=== PATIENT | female | born 1945 | race Caucasian/White ===

== ENCOUNTER 2017-04-17 09:20 | Outpatient (CLI) | payer MEDICARE ==
[~2017-04-17 09:20] MED LIST: CHOL100046 PO; DOCU-148 PO; FAMO20TA8 PO; HYDR12.5 PO; IBUP-24 PO; SPIIN INH
[2017-04-17 10:19] LABS: BASOPHILS # (AUTO) 0.1 X10'3 (0-0.2); BASOPHILS % (AUTO) 1.7 % (0-1); EOSINOPHILS # (AUTO) 0.3 X10'3 (0-0.9); HEMATOCRIT 42.4 % (35.0-45.0); HEMOGLOBIN 14.1 g/dl (12.0-16.0); LYMPHOCYTES # (AUTO) 1.6 X10'3 (1.1-4.8); LYMPHOCYTES % (AUTO) 22.8 % (21-51); MEAN CORPUSCULAR HEMOGLOBIN 29.4 PG (27.0-31.0); MEAN CORPUSCULAR HGB CONC 33.1 % (33.0-36.5); MEAN CORPUSCULAR VOLUME 88.7 FL (78-98); MEAN PLATELET VOLUME 8.2 FL (7.4-10.4); MONOCYTES # (AUTO) 0.3 X10'3 (0-0.9); MONOCYTES % (AUTO) 4.7 % (2-12); NEUTROPHILS # (AUTO) 4.6 X10'3 (1.8-7.7); NEUTROPHILS % (AUTO) 66.8 % (42-75); PLATELET COUNT 250 X10'3 (140-440); RED BLOOD COUNT 4.78 X10'6 (4.20-5.60); RED CELL DISTRIBUTION WIDTH 14.4 % (11.5-14.5)
[2017-04-17 10:22] LABS: CLARITY,URINE Clear (Clear); COLOR,URINE Yellow (Yellow); GLUCOSE, URINE Negative (Neg); KETONES,URINE Negative (Neg); LEUKOCYTE ESTERASE ,URINE Negative (Neg); NITRITES, URINE Negative (Neg); OCCULT BLOOD,URINE Negative (Neg); PROTEIN,URINE Negative (Neg)
[2017-04-17 10:28] LABS: PROTHROMBIN TIME 10.6 SECONDS (9.0-12.0)
[2017-04-17 10:30] LABS: UA COLLECTION TYPE CLN CATCH MIDSTREAM
[2017-04-17 10:34] LABS: ALANINE AMINOTRANSFERASE 21 U/L (12-78); ALBUMIN 3.4 G/DL (3.4-5.0); ALBUMIN/GLOBULIN RATIO 0.9 (1.1-1.5); ALKALINE PHOSPHATASE 128 IU/L (46-116); ANION GAP 7 (8-16); ASPARTATE AMINO TRANSFERASE 20 U/L (10-37); BILIRUBIN,TOTAL 0.4 MG/DL (0.1-1.0); BLOOD UREA NITROGEN 19 MG/DL (7-18); BUN/CREATININE RATIO 16.8 (6.6-38.0); CALCIUM 9.1 MG/DL (8.5-10.1); CHLORIDE 108 MMOL/L (99-107); CREATININE 1.13 MG/DL (0.40-0.90); GLUCOSE 108 MG/DL (70-104); POTASSIUM 3.7 MMOL/L (3.5-5.1); SODIUM 143 MMOL/L (135-145); TOTAL PROTEIN 7.4 G/DL (6.4-8.2); eGFR 48 ML/MIN
[2017-04-26] MEDS ORDERED: TRAM50TA2 PO (09:00)
== END 2017-04-17 23:59 | disposition home or self-care (01) ==
LOC: LAB 09:20
PROVIDERS: ATTEND Specialist
DX: Z01.818 Encounter for other preprocedural examination (principal); Z51.81 Encounter for therapeutic drug level monitoring; N39.0 Urinary tract infection, site not specified; I10 Essential (primary) hypertension; J44.9 Chronic obstructive pulmonary disease, unspecified; F17.200 Nicotine dependence, unspecified, uncomplicated; Z85.3 Personal history of malignant neoplasm of breast
CPT/HCPCS: 36415; 80053; 81003; 85025; 85610; 87070

== ENCOUNTER 2017-04-30 05:20 | Inpatient (IN) | payer MEDICARE ==
[2017-04-30] VITALS (18 sets, daily range): BP systolic 89–140; BP diastolic 48–81
[~2017-04-30] VITALS: Ht 154.9 cm; Wt 71.0 kg
[~2017-04-30 05:20] MED LIST changes: +TRAM50TA2 PO; +insulin regular, human 10 units/0.1 ml syringe ONE; +ringers solution, lacted 1,000 ML IV SCH
[2017-04-30] MEDS ORDERED: oxyCODONE SR 10mg (sust. release) tab PO ONE (05:30)
[2017-04-30] MEDS ORDERED: ceFAZolin 2gm in dextrose, iso 100 ML IV ONE (05:30)
[2017-04-30] MEDS ORDERED: gabapentin 300mg capsule PO ONE (05:30)
[2017-04-30] MEDS ORDERED: tranexamic acid inj. 1,000 MG in normal saline 100ml IV soln 90 ML IV ONE (05:30)
[2017-04-30] MEDS ORDERED: albuterol 2.5 MG/3 ML nebule NEB ONE (05:30)
[2017-04-30] MEDS ORDERED: acetaminophen 325mg tablet PO ONE (05:30)
[2017-04-30] MEDS ORDERED: famotidine 20mg tablet PO ONE (05:30)
[2017-04-30] MEDS ORDERED: LIDOcaine 1% (10mg/ml) 2ml vial ONE ×2 (06:00→06:27)
[2017-04-30] MEDS ORDERED: ROPIVAcaine 0.5% (5mg/ml) 30ml vial ONE (06:50)
[2017-04-30] MEDS ORDERED: bacitracin inj 150,000 UNIT in sodium chloride irrig. sol 3,000 ML IR ONE (07:00)
[2017-04-30] MEDS ORDERED: MORPHINE SULFATE/PF 0.5 MG/ML 10ML AMPUL ONE (07:19)
[2017-04-30] MEDS ORDERED: MIDAZolam 1mg/ml 10ml vial ONE (07:19)
[2017-04-30] MEDS ORDERED: dexamethasone sod phosphate 4mg/ml inj. ONE (07:51)
[2017-04-30] MEDS ORDERED: BUPIVAcaine/PF 2.5 mg/ml (0.25%) 30ml vial ONE (07:51)
[2017-04-30] MEDS ORDERED: propofol inj 20 ML IV ONE ×2 (07:51)
[2017-04-30] MEDS ORDERED: 0.9 % SODIUM CHLORIDE 10 ML VIAL ONE (07:52)
[2017-04-30] MEDS ORDERED: ePHEDrine 50MG/ML INJ. ONE (08:01)
[2017-04-30] MEDS ORDERED: proCHLORperazine 10 MG/2 ml inj IV PRN (08:20)
[2017-04-30] MEDS ORDERED: acetaminophen 1,000mg/100ml IV 100 ML IV PRN (08:20)
[2017-04-30] MEDS ORDERED: meperidine/PF 25mg/ml syringe IV PRN ×2 (08:20)
[2017-04-30] MEDS ORDERED: ondansetron/PF 4mg/2ml inj IV PRN ×3 (08:20→09:25)
[2017-04-30] MEDS ORDERED: diphenhydrAMINE 50 mg/ml inj IV PRN (08:20)
[2017-04-30] MEDS ORDERED: meperidine/PF 25mg/ml syringe IV ONE (08:20)
[2017-04-30] MEDS ORDERED: naloxone 2mg/2ml inj 1.3 MG in normal saline 500ml IV soln 500 ML IV PRN (08:20)
[2017-04-30] MEDS ORDERED: ringers solution, lacted 1,000 ML IV SCH (08:20)
[2017-04-30] MEDS ORDERED: ceFAZolin 1000mg inj ONE (08:42)
[2017-04-30] MEDS ORDERED: phenylephrine 10mg/ml inj IV ONE (08:57)
[2017-04-30] MEDS ORDERED: cloNIDine hcl/PF 100mcg/ml inj ONE (09:15)
[2017-04-30] MEDS ORDERED: diphenhydrAMINE 25mg capsule PO PRN ×2 (09:25)
[2017-04-30] MEDS ORDERED: acetaminophen 325mg tablet PO PRN ×2 (09:25→20:31)
[2017-04-30] MEDS ORDERED: bisacodyl 10mg suppository rectal RC PRN (09:25)
[2017-04-30] MEDS ORDERED: HYDROmorphone inj. 0.5 MG/0.5 ML DISP.SYRIN IV PRN (09:25)
[2017-04-30] MEDS ORDERED: magnesium hydroxide 30ml (MOM) UD suspension PO PRN (09:25)
[2017-04-30] MEDS: potassium cl 20mEq in 1/2 NS 1,000 ML IV SCH ×3 (13:12→20:53)
[2017-04-30] MEDS: gabapentin 300mg capsule PO SCH ×2 (13:14→20:45)
[2017-04-30] MEDS: acetaminophen 325mg tablet PO SCH (13:47)
[2017-04-30] MEDS: cefazolin 1gm/NS 100mL 100 ML IV SCH ×2 (15:55→23:59)
[2017-04-30] MEDS: ascorbic acid 500mg tablet PO SCH (20:00)
[2017-04-30] MEDS: celeCOXIB 100mg capsule PO SCH (20:45)
[2017-04-30] MEDS: sennosides 8.6mg tablet PO SCH (21:00)
[2017-05-01 02:35] VITALS: BP 92/53
[2017-05-01] MEDS: acetaminophen 325mg tablet PO SCH ×4 (03:16→19:17)
[2017-05-01] MEDS: oxyCODONE IR 5mg (immed. release) tablet PO PRN ×3 (05:41→19:16)
[2017-05-01] MEDS: potassium cl 20mEq in 1/2 NS 1,000 ML IV SCH ×2 (05:52→15:07)
[2017-05-01 06:00] VITALS: BP 97/42
[2017-05-01 06:24] LABS: BASOPHILS % (AUTO) 0.2 % (0-1); EOSINOPHILS # (AUTO) 0.1 X10'3 (0-0.9); HEMOGLOBIN 11.2 g/dl (12.0-16.0); LYMPHOCYTES % (AUTO) 9.8 % (21-51); MEAN CORPUSCULAR HEMOGLOBIN 29.6 PG (27.0-31.0); MEAN CORPUSCULAR VOLUME 89.7 FL (78-98); MEAN PLATELET VOLUME 8.4 FL (7.4-10.4); MONOCYTES # (AUTO) 0.4 X10'3 (0-0.9); MONOCYTES % (AUTO) 3.9 % (2-12); NEUTROPHILS # (AUTO) 8.5 X10'3 (1.8-7.7); NEUTROPHILS % (AUTO) 85.1 % (42-75); PLATELET COUNT 214 X10'3 (140-440); RED BLOOD COUNT 3.79 X10'6 (4.20-5.60); RED CELL DISTRIBUTION WIDTH 13.6 % (11.5-14.5); WHITE BLOOD COUNT 9.9 X10'3 (4.5-11.0)
[2017-05-01 06:39] LABS: INR 1.8 INR; PROTHROMBIN TIME 18.3 SECONDS (9.0-12.0)
[2017-05-01 07:05] LABS: ANION GAP 8 (8-16); CHLORIDE 106 MMOL/L (99-107); POTASSIUM 4.6 MMOL/L (3.5-5.1); SODIUM 137 MMOL/L (135-145); TOTAL CARBON DIOXIDE 23.1 MMOL/L (24-32)
[2017-05-01] MEDS: HYDROchlorothiazide 12.5mg capsule PO SCH (07:05)
[2017-05-01] MEDS: multivitamins, therapeutics tablet PO SCH (07:16)
[2017-05-01] MEDS: ascorbic acid 500mg tablet PO SCH ×2 (07:16→19:17)
[2017-05-01] MEDS: celeCOXIB 100mg capsule PO SCH ×2 (07:17→19:16)
[2017-05-01] MEDS: gabapentin 300mg capsule PO SCH ×3 (07:18→21:05)
[2017-05-01] MEDS: ipratropium 0.5 MG/2.5ML nebule NEB SCH (08:09)
[2017-05-01 10:00] VITALS: BP 119/81
[2017-05-01] MEDS ORDERED: warfarin 1mg tablet PO ONE (10:00)
[2017-05-01] MEDS ORDERED: Protein Shake (high protein) 240ml (8oz) cup PO SCH (13:00)
[2017-05-01] MEDS: Protein Shake (high protein) 240ml (8oz) cup PO SCH ×2 (13:13→18:00)
[2017-05-01 14:00] VITALS: BP 114/57
[2017-05-01 18:00] VITALS: BP 93/56
[2017-05-01] MEDS: sennosides 8.6mg tablet PO SCH (21:06)
[2017-05-01 22:29] VITALS: BP 93/58
[2017-05-02] MEDS: acetaminophen 325mg tablet PO SCH ×2 (02:00→07:58)
[2017-05-02] MEDS: oxyCODONE IR 5mg (immed. release) tablet PO PRN ×4 (05:33→22:03)
[2017-05-02 07:29] VITALS: BP 96/52
[2017-05-02] MEDS: HYDROchlorothiazide 12.5mg capsule PO SCH (07:44)
[2017-05-02 07:50] LABS: BASOPHILS % (AUTO) 0.4 % (0-1); EOSINOPHILS # (AUTO) 0.2 X10'3 (0-0.9); EOSINOPHILS % (AUTO) 2.4 % (0-6); HEMOGLOBIN 10.9 g/dl (12.0-16.0); LYMPHOCYTES # (AUTO) 1.9 X10'3 (1.1-4.8); LYMPHOCYTES % (AUTO) 21.8 % (21-51); MEAN CORPUSCULAR HEMOGLOBIN 29.7 PG (27.0-31.0); MEAN CORPUSCULAR HGB CONC 33.1 % (33.0-36.5); MEAN CORPUSCULAR VOLUME 89.7 FL (78-98); MEAN PLATELET VOLUME 8.2 FL (7.4-10.4); MONOCYTES # (AUTO) 0.4 X10'3 (0-0.9); MONOCYTES % (AUTO) 4.9 % (2-12); NEUTROPHILS # (AUTO) 6.1 X10'3 (1.8-7.7); NEUTROPHILS % (AUTO) 70.5 % (42-75); PLATELET COUNT 211 X10'3 (140-440); RED BLOOD COUNT 3.68 X10'6 (4.20-5.60); RED CELL DISTRIBUTION WIDTH 14.6 % (11.5-14.5); WHITE BLOOD COUNT 8.6 X10'3 (4.5-11.0)
[2017-05-02] MEDS: multivitamins, therapeutics tablet PO SCH (07:57)
[2017-05-02] MEDS: gabapentin 300mg capsule PO SCH ×3 (07:57→22:03)
[2017-05-02] MEDS: celeCOXIB 100mg capsule PO SCH ×2 (07:57→22:03)
[2017-05-02] MEDS: ascorbic acid 500mg tablet PO SCH ×2 (07:58→22:03)
[2017-05-02 08:02] LABS: INR 1.8 INR; PROTHROMBIN TIME 17.9 SECONDS (9.0-12.0)
[2017-05-02] MEDS: ipratropium 0.5 MG/2.5ML nebule NEB SCH (08:42)
[2017-05-02] MEDS: Protein Shake (high protein) 240ml (8oz) cup PO SCH ×3 (08:45→18:00)
[2017-05-02] MEDS ORDERED: acetaminophen 325mg tablet PO PRN (09:25)
[2017-05-02 10:00] VITALS: BP 90/52
[2017-05-02] MEDS ORDERED: warfarin 1mg tablet PO ONE (10:00)
[2017-05-02 18:00] VITALS: BP 112/57
[2017-05-02 22:00] VITALS: BP 122/73
[2017-05-02] MEDS: sennosides 8.6mg tablet PO SCH (22:03)
[2017-05-03 05:00] VITALS: BP 116/68
[2017-05-03] MEDS: multivitamins, therapeutics tablet PO SCH (07:55)
[2017-05-03] MEDS: celeCOXIB 100mg capsule PO SCH (07:55)
[2017-05-03] MEDS: ascorbic acid 500mg tablet PO SCH (07:55)
[2017-05-03] MEDS: gabapentin 300mg capsule PO SCH (07:56)
[2017-05-03] MEDS: HYDROchlorothiazide 12.5mg capsule PO SCH (07:56)
[2017-05-03 08:20] LABS: BASOPHILS # (AUTO) 0.1 X10'3 (0-0.2); BASOPHILS % (AUTO) 1.2 % (0-1); EOSINOPHILS # (AUTO) 0.3 X10'3 (0-0.9); EOSINOPHILS % (AUTO) 4.4 % (0-6); HEMATOCRIT 33.1 % (35.0-45.0); LYMPHOCYTES # (AUTO) 1.8 X10'3 (1.1-4.8); LYMPHOCYTES % (AUTO) 23.4 % (21-51); MEAN CORPUSCULAR HEMOGLOBIN 29.6 PG (27.0-31.0); MEAN CORPUSCULAR HGB CONC 33.1 % (33.0-36.5); MEAN CORPUSCULAR VOLUME 89.4 FL (78-98); MEAN PLATELET VOLUME 8.3 FL (7.4-10.4); MONOCYTES # (AUTO) 0.5 X10'3 (0-0.9); MONOCYTES % (AUTO) 5.9 % (2-12); NEUTROPHILS % (AUTO) 65.1 % (42-75); PLATELET COUNT 225 X10'3 (140-440); RED BLOOD COUNT 3.71 X10'6 (4.20-5.60); RED CELL DISTRIBUTION WIDTH 14.3 % (11.5-14.5); WHITE BLOOD COUNT 7.7 X10'3 (4.5-11.0)
[2017-05-03 08:25] LABS: INR 1.4 INR; PROTHROMBIN TIME 13.9 SECONDS (9.0-12.0)
[2017-05-03] MEDS ORDERED: ASPI-1264 PO (08:41)
[2017-05-03] MEDS: Protein Shake (high protein) 240ml (8oz) cup PO SCH (08:44)
[2017-05-03] MEDS: ipratropium 0.5 MG/2.5ML nebule NEB SCH (09:08)
[2017-05-03] MEDS ORDERED: warfarin 5mg tablet PO ONE (10:00)
[2017-05-03 10:05] VITALS: BP 116/61
[2017-05-03] MEDS: oxyCODONE IR 5mg (immed. release) tablet PO PRN (10:27)
== END 2017-05-03 12:30 | disposition home health service (06) | DRG 470 ==
LOC: PAS IN 05:20 → EDSTATUS 07:30 → ORTHO 4S 10:35 → UNDODISIN 05-01 11:30 → ORTHO 4S 05-02 16:00
PROVIDERS: ADMIT Specialist; ATTEND Specialist
PROC: 3E0T3BZ Introduction of Anesthetic Agent into Peripheral Nerves and Plexi, Percutaneous Approach (ICD-10-PCS; 2017-04-30)
PROC: 0SR902Z Replacement of Right Hip Joint with Metal on Polyethylene Synthetic Substitute, Open Approach (ICD-10-PCS; principal; 2017-04-30 07:20)
DX: M16.11 Unilateral primary osteoarthritis, right hip (principal); J44.9 Chronic obstructive pulmonary disease, unspecified; D62 Acute posthemorrhagic anemia; I10 Essential (primary) hypertension; K21.9 Gastro-esophageal reflux disease without esophagitis; Z96.642 Presence of left artificial hip joint; Z90.10 Acquired absence of unspecified breast and nipple; Z90.710 Acquired absence of both cervix and uterus; Z79.899 Other long term (current) drug therapy; Z85.3 Personal history of malignant neoplasm of breast
CPT/HCPCS: 36415; 72170; 80051; 85025; 85610; 86885; 86900; 86901; 94640; 94760; 97110; 97116; 97162; 97530; A4565; A6253; A6449; A6455; A7000; C1758; C1776; J0690; J0735; J1100; J1815; J2250; J2274; J2370; J2405; J2704; J2795; J3490; J7120

== ENCOUNTER 2021-01-26 05:20 | Inpatient (IN) | payer MEDICARE ==
[2021-01-20 13:41] LABS: MEAN CORPUSCULAR VOLUME 91.5 FL (78-98); PRE OP HEMATOCRIT 41.1 % (35.0-45.0); PRE OP HEMOGLOBIN 13.5 g/dL (12.0-16.0); RED BLOOD COUNT 4.49 X10'6 (4.20-5.60); RED CELL DISTRIBUTION WIDTH 14.3 % (11.5-14.5)
[2021-01-20 13:43] LABS: MEAN CORPUSCULAR HGB CONC 32.8 g/dL (33.0-36.5); MEAN PLATELET VOLUME 9.1 FL (7.4-10.4); PRE OP PLATELET COUNT 224 X10'3 (140-440)
[2021-01-20 13:53] LABS: ALBUMIN 3.5 G/DL (3.4-5.0); ALBUMIN/GLOBULIN RATIO 0.9 (1.1-1.5); ALKALINE PHOSPHATASE 91 IU/L (46-116); BLOOD UREA NITROGEN 21 MG/DL (7-18); CALCIUM 9.1 MG/DL (8.5-10.1); CHLORIDE 109 MMOL/L (99-107); CREATININE 1.31 MG/DL (0.40-0.90); PRE OP ALT 25 U/L (30-65); PRE OP ANION GAP 7 (8-16); PRE OP AST 18 U/L (10-37); PRE OP BILIRUB, TOTAL 0.5 MG/DL (0.0-1.0); PRE OP GLUCOSE 99 MG/DL (70-104); PRE OP POTASSIUM 3.5 MMOL/L (3.4-5.1); PRE OP SODIUM 143 MMOL/L (135-145); TOTAL PROTEIN 7.2 G/DL (6.4-8.2); eGFR 40 ML/MIN
[2021-01-20 13:58] LABS: PRE OP INR 1.1 INR; PRE OP PROTIME 11.2 SECONDS (9.0-12.0)
[2021-01-20 14:39] LABS: PLATELET ESTIMATE NORMAL; TOTAL CELLS COUNTED 100
[2021-01-26] VITALS (33 sets, daily range): BP systolic 93–159; BP diastolic 46–87
[~2021-01-26] VITALS: Ht 152.4 cm; Wt 74.8 kg
[~2021-01-26 05:20] MED LIST changes: +ACET650T11 PO; -CHOL100046 PO; -DOCU-148 PO; -IBUP-24 PO; +MELO15TA13 PO; -SPIIN INH; +TIOT4MIS3 INH; -TRAM50TA2 PO; -insulin regular, human 10 units/0.1 ml syringe ONE
[2021-01-26] MEDS ORDERED: famotidine 20mg tablet PO ONE (05:30)
[2021-01-26] MEDS ORDERED: cefazolin/dext.iso 2gm/100ml IV ONE (05:30)
[2021-01-26] MEDS ORDERED: TALC 4 GM VIAL ***intrapleural administration only IX ONE (07:05)
[2021-01-26] MEDS ORDERED: BUPIVAcaine/PF 2.5mg/ml (0.25%) 10ml vial ONE (07:22)
[2021-01-26] MEDS ORDERED: BUPIVAcaine 0.5% inj/PF 30 ML ONE (07:23)
[2021-01-26] MEDS ORDERED: sevoflurane 250ml liquid IH ONE (07:32)
[2021-01-26] MEDS ORDERED: midazolam 1 mg/ML 2ml injection ONE (07:39)
[2021-01-26] MEDS ORDERED: fentaNYL /PF 50mcg/ml 5ml ampule ONE (07:39)
[2021-01-26] MEDS ORDERED: 0.9 % SODIUM CHLORIDE 10 ML VIAL ONE ×2 (09:35)
[2021-01-26] MEDS ORDERED: LIDOcaine 2% (20mg/ml) 5ml vial ONE (09:35)
[2021-01-26] MEDS ORDERED: propofol inj 20 ML IV ONE (09:35)
[2021-01-26] MEDS ORDERED: ePHEDrine 50MG/ML INJ. ONE (09:35)
[2021-01-26] MEDS ORDERED: rocuronium 10mg/ml inj IV ONE (09:35)
[2021-01-26] MEDS ORDERED: ondansetron/PF 4mg/2ml inj ONE (09:40)
[2021-01-26] MEDS ORDERED: dexamethasone sod phosphate 4mg/ml inj. ONE (09:40)
[2021-01-26] MEDS ORDERED: glycopyrrolate 0.2mg/ml inj ONE (09:45)
[2021-01-26] MEDS ORDERED: neostigmine methylsulfate 1 MG/ML 10ml vial ONE (09:45)
[2021-01-26] MEDS ORDERED: acetaminophen 325mg tablet PO PRN (09:50)
[2021-01-26] MEDS ORDERED: ondansetron/PF 4mg/2ml inj IV PRN ×2 (09:55→10:05)
[2021-01-26] MEDS ORDERED: naloxone 0.4 mg/ml inj IV PRN (09:55)
[2021-01-26] MEDS ORDERED: morphine 4 MG/ML inj SYRINge IV PRN ×3 (09:55→10:05)
[2021-01-26] MEDS ORDERED: metoclopramide 5 mg/ml inj IV PRN (09:55)
[2021-01-26] MEDS ORDERED: CADD PCA waste documentation MC PRN (09:55)
[2021-01-26] MEDS ORDERED: albuterol 2.5 MG/3 ML nebule NEB PRN (09:55)
[2021-01-26] MEDS ORDERED: magnesium hydroxide 30ml (MOM) UD suspension PO PRN (09:55)
[2021-01-26] MEDS ORDERED: acetaminophen 1,000mg/100ml IV 100 ML IV PRN (10:05)
[2021-01-26] MEDS ORDERED: labetalol 20mg/4ml (5mg/ml) syringe IV PRN (10:05)
[2021-01-26] MEDS ORDERED: ipratropium/albuterol 3ml nebule IH ONE (10:05)
[2021-01-26] MEDS ORDERED: ringers solution, lacted 1,000 ML IV SCH (10:05)
[2021-01-26] MEDS ORDERED: meperidine/PF 25mg/ml syringe IV PRN (10:05)
[2021-01-26] MEDS ORDERED: proCHLORperazine 10 MG/2 ml inj IV PRN (10:05)
[2021-01-26] MEDS ORDERED: HYDROmorphone/PF 0.2 MG/ML SYRINGE IV PRN ×2 (10:05)
[2021-01-26] MEDS ORDERED: morphine 2 MG/ML inj. syringe IV PRN (10:05)
[2021-01-26] MEDS ORDERED: hydrALAZINE 20mg/ml inj. IV PRN (10:05)
[2021-01-26 10:48] LABS: BASOPHILS # (AUTO) 0.1 X10'3 (0-0.2); BASOPHILS % (AUTO) 0.9 % (0-1); EOSINOPHILS # (AUTO) 0.1 X10'3 (0-0.9); EOSINOPHILS % (AUTO) 0.9 % (0-6); HEMATOCRIT 36.1 % (35.0-45.0); HEMOGLOBIN 12.2 g/dl (12.0-16.0); LYMPHOCYTES # (AUTO) 1.2 X10'3 (1.1-4.8); LYMPHOCYTES % (AUTO) 11.2 % (21-51); MEAN CORPUSCULAR HEMOGLOBIN 30.6 PG (27.0-31.0); MEAN CORPUSCULAR HGB CONC 33.7 g/dL (33.0-36.5); MEAN CORPUSCULAR VOLUME 90.9 FL (78-98); MEAN PLATELET VOLUME 8.8 FL (7.4-10.4); MONOCYTES # (AUTO) 0.3 X10'3 (0-0.9); MONOCYTES % (AUTO) 2.8 % (2-12); NEUTROPHILS # (AUTO) 8.6 X10'3 (1.8-7.7); NEUTROPHILS % (AUTO) 84.2 % (42-75); PLATELET COUNT 183 X10'3 (140-440); RED BLOOD COUNT 3.97 X10'6 (4.20-5.60); RED CELL DISTRIBUTION WIDTH 14.3 % (11.5-14.5); WHITE BLOOD COUNT 10.2 X10'3 (4.5-11.0)
[2021-01-26] MEDS: albuterol 2.5 MG/3 ML nebule NEB SCH ×4 (10:53→23:21)
[2021-01-26 10:59] LABS: ALANINE AMINOTRANSFERASE 22 U/L (12-78); ALBUMIN 2.9 G/DL (3.4-5.0); ALBUMIN/GLOBULIN RATIO 0.9 (1.1-1.5); ALKALINE PHOSPHATASE 86 IU/L (46-116); ANION GAP 10 (8-16); ASPARTATE AMINO TRANSFERASE 23 U/L (10-37); BILIRUBIN,TOTAL 0.4 MG/DL (0.1-1.0); BLOOD UREA NITROGEN 19 MG/DL (7-18); CALCIUM 7.7 MG/DL (8.5-10.1); CHLORIDE 110 MMOL/L (99-107); CREATININE 1.12 MG/DL (0.40-0.90); GLUCOSE 201 MG/DL (70-104); MAGNESIUM 1.4 MG/DL (1.5-2.4); POTASSIUM 3.8 MMOL/L (3.5-5.1); SODIUM 143 MMOL/L (135-145); TOTAL CARBON DIOXIDE 23.3 MMOL/L (24-32); TOTAL PROTEIN 6.2 G/DL (6.4-8.2); eGFR 48 ML/MIN
[2021-01-26] MEDS: morphine/NS 1 mg/ml 50ml CADD 50 ML IV SCH ×6 (11:16→23:09)
[2021-01-26] MEDS: ceFAZolin inj. 1,000 MG in dextrose 5%-water 50ml 50 ML IV SCH ×2 (16:23→23:05)
[2021-01-26] MEDS: gabapentin 300mg capsule PO SCH (20:38)
[2021-01-26] MEDS: docusate sod 100mg capsule PO SCH (20:38)
[2021-01-26] MEDS ORDERED: benzocaine/menthol oral lozeng 1 EACH BOX MM PRN (20:45)
[2021-01-27] VITALS (22 sets, daily range): BP systolic 83–115; BP diastolic 35–63
[2021-01-27] MEDS: morphine/NS 1 mg/ml 50ml CADD 50 ML IV SCH ×10 (01:08→23:00)
[2021-01-27] MEDS: albuterol 2.5 MG/3 ML nebule NEB SCH ×6 (03:40→23:15)
[2021-01-27] MEDS: gabapentin 300mg capsule PO SCH ×2 (07:57→20:01)
[2021-01-27] MEDS: famotidine 20mg tablet PO SCH (07:57)
[2021-01-27] MEDS: HYDROchlorothiazide 12.5mg capsule PO SCH (07:58)
[2021-01-27] MEDS: docusate sod 100mg capsule PO SCH ×2 (07:58→20:01)
[2021-01-27] MEDS ORDERED: non-formulary drug (Meloxicam (Mobic) 1 TAB) PO SCH (08:00)
[2021-01-27 09:21] LABS: BASOPHILS % (AUTO) 0.1 % (0-1); EOSINOPHILS % (AUTO) 0 % (0-6); HEMATOCRIT 34.5 % (35.0-45.0); HEMOGLOBIN 11.4 g/dl (12.0-16.0); LYMPHOCYTES # (AUTO) 0.8 X10'3 (1.1-4.8); LYMPHOCYTES % (AUTO) 5.1 % (21-51); MEAN CORPUSCULAR HEMOGLOBIN 30.1 PG (27.0-31.0); MEAN CORPUSCULAR VOLUME 91.5 FL (78-98); MEAN PLATELET VOLUME 9.3 FL (7.4-10.4); MONOCYTES # (AUTO) 0.7 X10'3 (0-0.9); MONOCYTES % (AUTO) 4.1 % (2-12); NEUTROPHILS # (AUTO) 14.6 X10'3 (1.8-7.7); NEUTROPHILS % (AUTO) 90.7 % (42-75); PLATELET COUNT 197 X10'3 (140-440); RED BLOOD COUNT 3.77 X10'6 (4.20-5.60); RED CELL DISTRIBUTION WIDTH 14.1 % (11.5-14.5); WHITE BLOOD COUNT 16.1 X10'3 (4.5-11.0)
[2021-01-27 09:24] LABS: ALANINE AMINOTRANSFERASE 20 U/L (12-78); ALBUMIN/GLOBULIN RATIO 0.9 (1.1-1.5); ALKALINE PHOSPHATASE 75 IU/L (46-116); ANION GAP 10 (8-16); ASPARTATE AMINO TRANSFERASE 29 U/L (10-37); BILIRUBIN,TOTAL 0.6 MG/DL (0.1-1.0); BLOOD UREA NITROGEN 26 MG/DL (7-18); BUN/CREATININE RATIO 16.6 (6.6-38.0); CALCIUM 7.8 MG/DL (8.5-10.1); CHLORIDE 107 MMOL/L (99-107); CREATININE 1.57 MG/DL (0.40-0.90); GLUCOSE 164 MG/DL (70-104); SODIUM 141 MMOL/L (135-145); TOTAL CARBON DIOXIDE 23.8 MMOL/L (24-32); TOTAL PROTEIN 6.5 G/DL (6.4-8.2); eGFR 32 ML/MIN
[2021-01-27 09:58] LABS: MAGNESIUM 1.7 MG/DL (1.5-2.4)
[2021-01-27] MEDS: Tiotropium Br/Olodaterol HCl (Stiolto Respimat Inhal Spray) IH SCH (14:20)
[2021-01-27] MEDS ORDERED: albumin (Human) 5% 250ml 250 ML IV ONE ×2 (14:50→17:25)
[2021-01-28] VITALS (13 sets, daily range): BP systolic 95–133; BP diastolic 34–61
[2021-01-28] MEDS: morphine/NS 1 mg/ml 50ml CADD 50 ML IV SCH ×3 (01:00→05:02)
[2021-01-28] MEDS: albuterol 2.5 MG/3 ML nebule NEB SCH ×3 (02:52→11:41)
[2021-01-28] MEDS ORDERED: magnesium 4gm in 100ml NS 100 ML IV PRN (07:20)
[2021-01-28] MEDS ORDERED: magnesium 2GM in 50ml NS 50 ML IV PRN (07:20)
[2021-01-28] MEDS ORDERED: potassium Cl 20mEq/100mL bag 100 ML IV PRN (07:20)
[2021-01-28] MEDS ORDERED: potassium CL 10mEq/100ml bag 100 ML IV PRN (07:20)
[2021-01-28] MEDS ORDERED: potassium Cl 40MEQ/1/2NS 520ml 520 ML IV PRN (07:20)
[2021-01-28] MEDS ORDERED: potassium Cl 20 mEq SR tablet PO PRN (07:20)
[2021-01-28] MEDS ORDERED: potassium Cl 40MEQ/250ML bag 250 ML IV PRN (07:20)
[2021-01-28 07:57] LABS: BASOPHILS # (AUTO) 0.1 X10'3 (0-0.2); BASOPHILS % (AUTO) 0.4 % (0-1); EOSINOPHILS % (AUTO) 0.1 % (0-6); HEMATOCRIT 31.6 % (35.0-45.0); HEMOGLOBIN 10.6 g/dl (12.0-16.0); LYMPHOCYTES # (AUTO) 1.4 X10'3 (1.1-4.8); LYMPHOCYTES % (AUTO) 10.6 % (21-51); MEAN CORPUSCULAR HEMOGLOBIN 30.5 PG (27.0-31.0); MEAN CORPUSCULAR HGB CONC 33.5 g/dL (33.0-36.5); MEAN PLATELET VOLUME 9.1 FL (7.4-10.4); MONOCYTES # (AUTO) 0.6 X10'3 (0-0.9); MONOCYTES % (AUTO) 4.9 % (2-12); NEUTROPHILS # (AUTO) 10.7 X10'3 (1.8-7.7); PLATELET COUNT 171 X10'3 (140-440); RED BLOOD COUNT 3.48 X10'6 (4.20-5.60); RED CELL DISTRIBUTION WIDTH 14.1 % (11.5-14.5); WHITE BLOOD COUNT 12.7 X10'3 (4.5-11.0)
[2021-01-28] MEDS: Tiotropium Br/Olodaterol HCl (Stiolto Respimat Inhal Spray) IH SCH (08:00)
[2021-01-28] MEDS: HYDROchlorothiazide 12.5mg capsule PO SCH (08:00)
[2021-01-28 08:11] LABS: ALANINE AMINOTRANSFERASE 18 U/L (12-78); ALBUMIN 3.1 G/DL (3.4-5.0); ALBUMIN/GLOBULIN RATIO 0.9 (1.1-1.5); ALKALINE PHOSPHATASE 75 IU/L (46-116); ANION GAP 10 (8-16); ASPARTATE AMINO TRANSFERASE 26 U/L (10-37); BLOOD UREA NITROGEN 32 MG/DL (7-18); BUN/CREATININE RATIO 24.1 (6.6-38.0); CALCIUM 7.8 MG/DL (8.5-10.1); CHLORIDE 105 MMOL/L (99-107); CREATININE 1.33 MG/DL (0.40-0.90); GLUCOSE 99 MG/DL (70-104); POTASSIUM 4.4 MMOL/L (3.5-5.1); SODIUM 140 MMOL/L (135-145); TOTAL PROTEIN 6.4 G/DL (6.4-8.2); eGFR 39 ML/MIN
[2021-01-28 08:13] LABS: MAGNESIUM 1.9 MG/DL (1.5-2.4); PHOSPHORUS 2.8 MG/DL (2.3-4.5)
[2021-01-28] MEDS: famotidine 20mg tablet PO SCH (08:15)
[2021-01-28] MEDS: gabapentin 300mg capsule PO SCH (08:15)
[2021-01-28] MEDS: HYDROcodone/acetaminophen 10/325mg tab PO PRN (08:16)
[2021-01-28] MEDS: docusate sod 100mg capsule PO SCH ×2 (08:16→19:59)
[2021-01-28] MEDS: magnesium Cl slow-release 64mg tablet PO SCH ×2 (08:20→19:59)
[2021-01-28] MEDS: potassium Cl 20 mEq SR tablet PO SCH ×2 (08:20→20:00)
[2021-01-28] MEDS ORDERED: albuterol 2.5 MG/3 ML nebule NEB PRN (12:00)
[2021-01-29] MEDS: HYDROcodone/acetaminophen 10/325mg tab PO PRN ×2 (00:18→19:42)
[2021-01-29 02:36] VITALS: BP 121/46
[2021-01-29 06:00] VITALS: BP 134/77
[2021-01-29 07:31] LABS: BASOPHILS % (AUTO) 0.3 % (0-1); EOSINOPHILS # (AUTO) 0.1 X10'3 (0-0.9); EOSINOPHILS % (AUTO) 1.1 % (0-6); HEMATOCRIT 31.9 % (35.0-45.0); HEMOGLOBIN 10.5 g/dl (12.0-16.0); LYMPHOCYTES # (AUTO) 2.1 X10'3 (1.1-4.8); LYMPHOCYTES % (AUTO) 18.9 % (21-51); MEAN CORPUSCULAR HEMOGLOBIN 29.9 PG (27.0-31.0); MEAN CORPUSCULAR HGB CONC 32.8 g/dL (33.0-36.5); MEAN CORPUSCULAR VOLUME 91.4 FL (78-98); MEAN PLATELET VOLUME 9.2 FL (7.4-10.4); MONOCYTES # (AUTO) 0.4 X10'3 (0-0.9); MONOCYTES % (AUTO) 3.6 % (2-12); NEUTROPHILS # (AUTO) 8.6 X10'3 (1.8-7.7); NEUTROPHILS % (AUTO) 76.1 % (42-75); PLATELET COUNT 184 X10'3 (140-440); RED BLOOD COUNT 3.49 X10'6 (4.20-5.60); RED CELL DISTRIBUTION WIDTH 14.4 % (11.5-14.5); WHITE BLOOD COUNT 11.3 X10'3 (4.5-11.0)
[2021-01-29 07:45] LABS: ALANINE AMINOTRANSFERASE 22 U/L (12-78); ALBUMIN 2.7 G/DL (3.4-5.0); ALBUMIN/GLOBULIN RATIO 0.8 (1.1-1.5); ALKALINE PHOSPHATASE 76 IU/L (46-116); ANION GAP 10 (8-16); ASPARTATE AMINO TRANSFERASE 36 U/L (10-37); BILIRUBIN,TOTAL 0.8 MG/DL (0.1-1.0); BLOOD UREA NITROGEN 32 MG/DL (7-18); BUN/CREATININE RATIO 22.9 (6.6-38.0); CALCIUM 8.3 MG/DL (8.5-10.1); CHLORIDE 107 MMOL/L (99-107); GLUCOSE 105 MG/DL (70-104); MAGNESIUM 2.2 MG/DL (1.5-2.4); PHOSPHORUS 2.8 MG/DL (2.3-4.5); POTASSIUM 4.1 MMOL/L (3.5-5.1); SODIUM 143 MMOL/L (135-145); TOTAL CARBON DIOXIDE 26.2 MMOL/L (24-32); TOTAL PROTEIN 6.3 G/DL (6.4-8.2); eGFR 37 ML/MIN
[2021-01-29] MEDS: Tiotropium Br/Olodaterol HCl (Stiolto Respimat Inhal Spray) IH SCH (08:00)
[2021-01-29] MEDS: magnesium Cl slow-release 64mg tablet PO SCH ×2 (08:19→19:29)
[2021-01-29] MEDS: potassium Cl 20 mEq SR tablet PO SCH ×2 (08:19→19:29)
[2021-01-29] MEDS: HYDROchlorothiazide 12.5mg capsule PO SCH (08:19)
[2021-01-29] MEDS: famotidine 20mg tablet PO SCH (08:19)
[2021-01-29] MEDS: docusate sod 100mg capsule PO SCH ×2 (08:19→19:34)
[2021-01-29 11:00] VITALS: BP 103/68
[2021-01-29 15:00] VITALS: BP 114/63
[2021-01-29 19:00] VITALS: BP 112/44
[2021-01-29 22:00] VITALS: BP 109/51
[2021-01-30 02:00] VITALS: BP 113/51
[2021-01-30 06:00] VITALS: BP 149/74
[2021-01-30 06:26] LABS: ALANINE AMINOTRANSFERASE 21 U/L (12-78); ALBUMIN 2.5 G/DL (3.4-5.0); ALBUMIN/GLOBULIN RATIO 0.7 (1.1-1.5); ALKALINE PHOSPHATASE 81 IU/L (46-116); ANION GAP 9 (8-16); ASPARTATE AMINO TRANSFERASE 29 U/L (10-37); BILIRUBIN,TOTAL 0.7 MG/DL (0.1-1.0); BLOOD UREA NITROGEN 25 MG/DL (7-18); BUN/CREATININE RATIO 22.5 (6.6-38.0); CALCIUM 8.6 MG/DL (8.5-10.1); CHLORIDE 106 MMOL/L (99-107); CREATININE 1.11 MG/DL (0.40-0.90); GLUCOSE 94 MG/DL (70-104); MAGNESIUM 2.2 MG/DL (1.5-2.4); PHOSPHORUS 2.6 MG/DL (2.3-4.5); POTASSIUM 3.8 MMOL/L (3.5-5.1); SODIUM 143 MMOL/L (135-145); TOTAL CARBON DIOXIDE 27.7 MMOL/L (24-32); eGFR 48 ML/MIN
[2021-01-30 06:37] LABS: BASOPHILS % (AUTO) 0.4 % (0-1); EOSINOPHILS # (AUTO) 0.1 X10'3 (0-0.9); EOSINOPHILS % (AUTO) 1.8 % (0-6); HEMATOCRIT 31.2 % (35.0-45.0); HEMOGLOBIN 10.4 g/dl (12.0-16.0); LYMPHOCYTES # (AUTO) 1.4 X10'3 (1.1-4.8); LYMPHOCYTES % (AUTO) 19.3 % (21-51); MEAN CORPUSCULAR HEMOGLOBIN 30.7 PG (27.0-31.0); MEAN CORPUSCULAR HGB CONC 33.5 g/dL (33.0-36.5); MEAN CORPUSCULAR VOLUME 91.6 FL (78-98); MEAN PLATELET VOLUME 9.3 FL (7.4-10.4); MONOCYTES # (AUTO) 0.3 X10'3 (0-0.9); MONOCYTES % (AUTO) 4.1 % (2-12); NEUTROPHILS # (AUTO) 5.6 X10'3 (1.8-7.7); NEUTROPHILS % (AUTO) 74.4 % (42-75); PLATELET COUNT 184 X10'3 (140-440); RED BLOOD COUNT 3.41 X10'6 (4.20-5.60); WHITE BLOOD COUNT 7.5 X10'3 (4.5-11.0)
[2021-01-30] MEDS: Tiotropium Br/Olodaterol HCl (Stiolto Respimat Inhal Spray) IH SCH (08:00)
[2021-01-30] MEDS: famotidine 20mg tablet PO SCH (08:47)
[2021-01-30] MEDS: HYDROcodone/acetaminophen 10/325mg tab PO PRN ×4 (08:47→21:13)
[2021-01-30] MEDS: potassium Cl 20 mEq SR tablet PO SCH ×2 (08:48→20:00)
[2021-01-30] MEDS: magnesium Cl slow-release 64mg tablet PO SCH ×2 (08:48→20:00)
[2021-01-30] MEDS: docusate sod 100mg capsule PO SCH ×2 (08:48→21:11)
[2021-01-30] MEDS: HYDROchlorothiazide 12.5mg capsule PO SCH (08:49)
[2021-01-30 11:00] VITALS: BP 124/54
[2021-01-30 15:00] VITALS: BP 124/62
[2021-01-30 18:00] VITALS: BP 122/60
[2021-01-30 22:00] VITALS: BP 102/62
[2021-01-31 02:00] VITALS: BP 141/67
[2021-01-31] MEDS: HYDROcodone/acetaminophen 10/325mg tab PO PRN ×6 (02:39→22:00)
[2021-01-31 06:24] LABS: BASOPHILS % (AUTO) 0.2 % (0-1); EOSINOPHILS # (AUTO) 0.2 X10'3 (0-0.9); EOSINOPHILS % (AUTO) 2.3 % (0-6); HEMATOCRIT 31.6 % (35.0-45.0); HEMOGLOBIN 10.6 g/dl (12.0-16.0); LYMPHOCYTES # (AUTO) 1.3 X10'3 (1.1-4.8); LYMPHOCYTES % (AUTO) 17.1 % (21-51); MEAN CORPUSCULAR HEMOGLOBIN 30.7 PG (27.0-31.0); MEAN CORPUSCULAR HGB CONC 33.6 g/dL (33.0-36.5); MEAN CORPUSCULAR VOLUME 91.3 FL (78-98); MEAN PLATELET VOLUME 8.7 FL (7.4-10.4); MONOCYTES # (AUTO) 0.4 X10'3 (0-0.9); MONOCYTES % (AUTO) 5.8 % (2-12); NEUTROPHILS # (AUTO) 5.6 X10'3 (1.8-7.7); NEUTROPHILS % (AUTO) 74.6 % (42-75); PLATELET COUNT 221 X10'3 (140-440); RED BLOOD COUNT 3.46 X10'6 (4.20-5.60); RED CELL DISTRIBUTION WIDTH 13.9 % (11.5-14.5); WHITE BLOOD COUNT 7.5 X10'3 (4.5-11.0)
[2021-01-31 06:53] LABS: ALANINE AMINOTRANSFERASE 21 U/L (12-78); ALBUMIN 2.5 G/DL (3.4-5.0); ALBUMIN/GLOBULIN RATIO 0.7 (1.1-1.5); ALKALINE PHOSPHATASE 83 IU/L (46-116); ANION GAP 6 (8-16); ASPARTATE AMINO TRANSFERASE 25 U/L (10-37); BILIRUBIN,TOTAL 0.7 MG/DL (0.1-1.0); BLOOD UREA NITROGEN 21 MG/DL (7-18); BUN/CREATININE RATIO 16.5 (6.6-38.0); CALCIUM 8.5 MG/DL (8.5-10.1); CHLORIDE 105 MMOL/L (99-107); CREATININE 1.27 MG/DL (0.40-0.90); GLUCOSE 112 MG/DL (70-104); MAGNESIUM 2.4 MG/DL (1.5-2.4); PHOSPHORUS 3.3 MG/DL (2.3-4.5); SODIUM 141 MMOL/L (135-145); TOTAL CARBON DIOXIDE 29.7 MMOL/L (24-32); eGFR 41 ML/MIN
[2021-01-31 07:00] VITALS: BP 130/57
[2021-01-31] MEDS: docusate sod 100mg capsule PO SCH ×2 (07:23→19:52)
[2021-01-31] MEDS: famotidine 20mg tablet PO SCH (07:24)
[2021-01-31] MEDS: magnesium Cl slow-release 64mg tablet PO SCH ×2 (07:24→20:00)
[2021-01-31] MEDS: HYDROchlorothiazide 12.5mg capsule PO SCH (07:24)
[2021-01-31] MEDS: potassium Cl 20 mEq SR tablet PO SCH ×2 (07:24→20:00)
[2021-01-31] MEDS: Tiotropium Br/Olodaterol HCl (Stiolto Respimat Inhal Spray) IH SCH (07:26)
[2021-01-31 11:00] VITALS: BP 114/63
[2021-01-31 15:00] VITALS: BP 131/62
[2021-01-31 18:00] VITALS: BP 137/72
[2021-01-31 22:00] VITALS: BP 140/61
[2021-02-01 02:30] VITALS: BP 152/75
[2021-02-01] MEDS: HYDROcodone/acetaminophen 10/325mg tab PO PRN ×4 (05:16→20:04)
[2021-02-01 06:00] VITALS: BP 106/48
[2021-02-01 06:57] LABS: BASOPHILS % (AUTO) 0.2 % (0-1); EOSINOPHILS # (AUTO) 0.2 X10'3 (0-0.9); EOSINOPHILS % (AUTO) 2.8 % (0-6); HEMATOCRIT 32.4 % (35.0-45.0); HEMOGLOBIN 10.9 g/dl (12.0-16.0); LYMPHOCYTES % (AUTO) 14.1 % (21-51); MEAN CORPUSCULAR HEMOGLOBIN 30.6 PG (27.0-31.0); MEAN CORPUSCULAR HGB CONC 33.6 g/dL (33.0-36.5); MEAN CORPUSCULAR VOLUME 91.1 FL (78-98); MONOCYTES # (AUTO) 0.5 X10'3 (0-0.9); MONOCYTES % (AUTO) 7.5 % (2-12); NEUTROPHILS # (AUTO) 5.4 X10'3 (1.8-7.7); NEUTROPHILS % (AUTO) 75.4 % (42-75); PLATELET COUNT 249 X10'3 (140-440); RED BLOOD COUNT 3.56 X10'6 (4.20-5.60); RED CELL DISTRIBUTION WIDTH 14.2 % (11.5-14.5); WHITE BLOOD COUNT 7.2 X10'3 (4.5-11.0)
[2021-02-01] MEDS: Tiotropium Br/Olodaterol HCl (Stiolto Respimat Inhal Spray) IH SCH (07:08)
[2021-02-01] MEDS: magnesium Cl slow-release 64mg tablet PO SCH ×2 (07:09→20:00)
[2021-02-01] MEDS: potassium Cl 20 mEq SR tablet PO SCH ×2 (07:09→20:00)
[2021-02-01] MEDS: docusate sod 100mg capsule PO SCH ×2 (07:13→20:02)
[2021-02-01] MEDS: famotidine 20mg tablet PO SCH (07:13)
[2021-02-01] MEDS: HYDROchlorothiazide 12.5mg capsule PO SCH (07:15)
[2021-02-01 07:23] LABS: ALANINE AMINOTRANSFERASE 21 U/L (12-78); ALBUMIN 2.5 G/DL (3.4-5.0); ALBUMIN/GLOBULIN RATIO 0.6 (1.1-1.5); ALKALINE PHOSPHATASE 93 IU/L (46-116); ANION GAP 9 (8-16); ASPARTATE AMINO TRANSFERASE 19 U/L (10-37); BILIRUBIN,TOTAL 0.6 MG/DL (0.1-1.0); BLOOD UREA NITROGEN 19 MG/DL (7-18); BUN/CREATININE RATIO 16.8 (6.6-38.0); CALCIUM 8.6 MG/DL (8.5-10.1); CHLORIDE 102 MMOL/L (99-107); CREATININE 1.13 MG/DL (0.40-0.90); GLUCOSE 120 MG/DL (70-104); MAGNESIUM 2.2 MG/DL (1.5-2.4); PHOSPHORUS 3.7 MG/DL (2.3-4.5); POTASSIUM 4.1 MMOL/L (3.5-5.1); SODIUM 140 MMOL/L (135-145); TOTAL CARBON DIOXIDE 29.5 MMOL/L (24-32); TOTAL PROTEIN 6.5 G/DL (6.4-8.2); eGFR 47 ML/MIN
[2021-02-01 11:00] VITALS: BP 121/78
[2021-02-01 17:27] VITALS: BP 121/81
[2021-02-01 18:00] VITALS: BP 128/50
[2021-02-01 22:00] VITALS: BP 121/66
[2021-02-02] MEDS: HYDROcodone/acetaminophen 10/325mg tab PO PRN ×2 (02:50→09:01)
[2021-02-02 06:27] LABS: BASOPHILS % (AUTO) 0.2 % (0-1); EOSINOPHILS # (AUTO) 0.2 X10'3 (0-0.9); EOSINOPHILS % (AUTO) 2.7 % (0-6); HEMATOCRIT 31.6 % (35.0-45.0); HEMOGLOBIN 10.8 g/dl (12.0-16.0); LYMPHOCYTES # (AUTO) 1.3 X10'3 (1.1-4.8); MEAN CORPUSCULAR HEMOGLOBIN 31.1 PG (27.0-31.0); MEAN CORPUSCULAR HGB CONC 34.2 g/dL (33.0-36.5); MEAN CORPUSCULAR VOLUME 90.8 FL (78-98); MEAN PLATELET VOLUME 8.3 FL (7.4-10.4); MONOCYTES # (AUTO) 0.5 X10'3 (0-0.9); MONOCYTES % (AUTO) 6.4 % (2-12); NEUTROPHILS # (AUTO) 6.2 X10'3 (1.8-7.7); NEUTROPHILS % (AUTO) 74.7 % (42-75); PLATELET COUNT 259 X10'3 (140-440); RED BLOOD COUNT 3.48 X10'6 (4.20-5.60); WHITE BLOOD COUNT 8.2 X10'3 (4.5-11.0)
[2021-02-02 06:39] LABS: ALANINE AMINOTRANSFERASE 22 U/L (12-78); ALBUMIN 2.7 G/DL (3.4-5.0); ALBUMIN/GLOBULIN RATIO 0.7 (1.1-1.5); ALKALINE PHOSPHATASE 101 IU/L (46-116); ANION GAP 10 (8-16); ASPARTATE AMINO TRANSFERASE 18 U/L (10-37); BILIRUBIN,TOTAL 0.6 MG/DL (0.1-1.0); BLOOD UREA NITROGEN 23 MG/DL (7-18); BUN/CREATININE RATIO 19.5 (6.6-38.0); CALCIUM 9.2 MG/DL (8.5-10.1); CHLORIDE 101 MMOL/L (99-107); CREATININE 1.18 MG/DL (0.40-0.90); GLUCOSE 112 MG/DL (70-104); MAGNESIUM 2.2 MG/DL (1.5-2.4); POTASSIUM 4.1 MMOL/L (3.5-5.1); SODIUM 140 MMOL/L (135-145); TOTAL CARBON DIOXIDE 29.2 MMOL/L (24-32); TOTAL PROTEIN 6.8 G/DL (6.4-8.2); eGFR 45 ML/MIN
[2021-02-02] MEDS: Tiotropium Br/Olodaterol HCl (Stiolto Respimat Inhal Spray) IH SCH (08:00)
[2021-02-02] MEDS: magnesium Cl slow-release 64mg tablet PO SCH ×2 (08:00→08:57)
[2021-02-02] MEDS: potassium Cl 20 mEq SR tablet PO SCH ×2 (08:00→08:57)
[2021-02-02] MEDS: famotidine 20mg tablet PO SCH (08:57)
[2021-02-02] MEDS: HYDROchlorothiazide 12.5mg capsule PO SCH (08:57)
[2021-02-02] MEDS: docusate sod 100mg capsule PO SCH (08:58)
[2021-02-02] MEDS ORDERED: HYDR-3972 PO (09:28)
[2021-02-02 10:13] VITALS: BP 112/49
== END 2021-02-02 14:37 | disposition home or self-care (01) | DRG 163 ==
LOC: PAS IN 05:20 → UNDODISIN 13:42 → ICU 2S 13:55 → PCU 3S 01-28 10:11
PROVIDERS: ADMIT Thoracic Surgery (Cardiothoracic Vascular Surgery); ATTEND Thoracic Surgery (Cardiothoracic Vascular Surgery)
PROC: 0BNN4ZZ Release Right Pleura, Percutaneous Endoscopic Approach (ICD-10-PCS; 2021-01-26)
PROC: 0BTF4ZZ Resection of Right Lower Lung Lobe, Percutaneous Endoscopic Approach (ICD-10-PCS; principal; 2021-01-26 07:32)
DX: C34.31 Malignant neoplasm of lower lobe, right bronchus or lung (principal); N17.0 Acute kidney failure with tubular necrosis; J94.8 Other specified pleural conditions; J93.82 Other air leak; I10 Essential (primary) hypertension; J44.9 Chronic obstructive pulmonary disease, unspecified; M10.9 Gout, unspecified; E66.9 Obesity, unspecified; K21.9 Gastro-esophageal reflux disease without esophagitis; Z68.32 Body mass index [BMI] 32.0-32.9, adult; Z85.3 Personal history of malignant neoplasm of breast; Z87.891 Personal history of nicotine dependence; Z90.10 Acquired absence of unspecified breast and nipple; Z99.81 Dependence on supplemental oxygen; Z79.899 Other long term (current) drug therapy
CPT/HCPCS: 36415; 71045; 71046; 80053; 82948; 83735; 84100; 85007; 85025; 85610; 85730; 86885; 86900; 86901; 87081; 88307; 88331; 88341; 88342; 88360; 93005; 94640; 94667; 94668; 94760; 97110; 97116; 97161; 97530; A4215; A4618; A6258; A6449; A7000; A7048; C1758; G0378; J0131; J0690; J1100; J2001; J2250; J2270; J2405; J2704; J2710; J3010; J3490; J7060; J7120; P9045; U0003; U0005

== ENCOUNTER 2024-06-26 09:19 | Day surgery (SDC) | payer MEDICARE ==
[2024-06-20 14:41] LABS: BASOPHILS # (AUTO) 0.3 X10'3 (0-0.2); BASOPHILS % (AUTO) 4.1 % (0-1); EOSINOPHILS # (AUTO) 0.2 X10'3 (0-0.9); EOSINOPHILS % (AUTO) 3.1 % (0-6); LYMPHOCYTES # (AUTO) 1.7 X10'3 (1.1-4.8); LYMPHOCYTES % (AUTO) 26.8 % (21-51); MEAN CORPUSCULAR HEMOGLOBIN 29.5 PG (27.0-31.0); MEAN CORPUSCULAR HGB CONC 33.3 g/dL (33.0-36.5); MEAN CORPUSCULAR VOLUME 88.7 FL (78-98); MONOCYTES # (AUTO) 0.5 X10'3 (0-0.9); MONOCYTES % (AUTO) 8.1 % (2-12); NEUTROPHILS # (AUTO) 3.7 X10'3 (1.8-7.7); NEUTROPHILS % (AUTO) 57.9 % (42-75); PRE OP HEMATOCRIT 39.2 % (35.0-45.0); PRE OP PLATELET COUNT 297 X10'3 (140-440); PRE OP WHITE BLOOD COUNT 6.3 10'3 (4.8-10.8); RED BLOOD COUNT 4.42 X10'6 (4.20-5.60)
[2024-06-20 14:54] LABS: PRE OP INR 1.1 INR; PRE OP PROTIME 11.4 SECONDS (9.0-12.0)
[2024-06-20 14:55] LABS: ALBUMIN 3.6 G/DL (3.4-5.0); ALKALINE PHOSPHATASE 102 IU/L (46-116); BLOOD UREA NITROGEN 17 MG/DL (7-18); BUN/CREATININE RATIO 16.7 (10.0-20.0); CALCIUM 9.5 MG/DL (8.5-10.1); CHLORIDE 106 MMOL/L (99-107); CREATININE 1.02 MG/DL (0.40-0.90); PRE OP ALT 21 U/L (30-65); PRE OP ANION GAP 5 (8-16); PRE OP AST 14 U/L (10-37); PRE OP BILIRUB, TOTAL 0.6 MG/DL (0.0-1.0); PRE OP GLUCOSE 111 MG/DL (70-104); PRE OP SODIUM 143 MMOL/L (135-145); TOTAL CARBON DIOXIDE 32.2 MMOL/L (24-32); TOTAL PROTEIN 7.3 G/DL (6.4-8.2); eGFR 53 ML/MIN
[2024-06-26] VITALS (10 sets, daily range): BP systolic 121–155; BP diastolic 54–78; PULSE 71–82; RESP 10–18; TEMP 97.9; O2SAT 94–100
[~2024-06-26] VITALS: Ht 152.4 cm; Wt 67.8 kg
[2024-06-26] MEDS: ceFAZolin 2gm in dextrose, iso 50 ML IV ONE (05:30)
[~2024-06-26 09:19] MED LIST changes: +ACET-1008 PO; -ACET650T11 PO; +FAMO-49 PO; -FAMO20TA8 PO; +FEBU40TA6 PO; +FLUT1BLS4 PO; -HYDR12.5 PO; +HYDR25TA4 PO; -MELO15TA13 PO; -TIOT4MIS3 INH; +TRAM50TA2 PO; -ringers solution, lacted 1,000 ML IV SCH
[2024-06-26] MEDS: famotidine 20mg tablet PO ONE (09:52)
[2024-06-26] MEDS: ringers solution, lacted 1,000 ML IV SCH (09:53)
[2024-06-26] MEDS ORDERED: methylene blue (5mg/ml) 50mg/10ml ampul IV ONE (11:00)
[2024-06-26] MEDS ORDERED: BUPIVAcaine/PF 2.5mg/ml (0.25%) 10ml vial ONE (11:00)
[2024-06-26] MEDS ORDERED: LIDOcaine 1% (10mg/ml)w/preservative inj. 20ml MDV ONE (11:00)
[2024-06-26] MEDS ORDERED: fentaNYL/PF 50MCG/1 ML 2ML syringe ONE (11:05)
[2024-06-26] MEDS ORDERED: propofol inj 20 ML IV ONE ×4 (11:22→12:19)
[2024-06-26] MEDS ORDERED: ePHEDrine 50MG/ML INJ. ONE (11:38)
[2024-06-26] MEDS ORDERED: LIDOcaine 1% W/epiNEPHrine 1:100,000 20ml vial ONE (11:57)
[2024-06-26] MEDS: BUPIVAcaine/PF 2.5 mg/ml (0.25%) 30ml vial IJ ONE (12:27)
[2024-06-26] MEDS ORDERED: HYDROmorphone/PF 0.2 MG/ML SYRINGE IV PRN (13:15)
[2024-06-26] MEDS ORDERED: proCHLORperazine 10 MG/2 ml inj IV PRN (13:15)
[2024-06-26] MEDS ORDERED: labetalol 20mg/4ml (5mg/ml) syringe IV PRN (13:15)
[2024-06-26] MEDS ORDERED: ringers solution, lacted 1,000 ML IV SCH (13:15)
[2024-06-26] MEDS ORDERED: ondansetron/PF 4mg/2ml inj IV PRN (13:15)
[2024-06-26] MEDS: HYDROmorphone/PF 0.2 MG/ML SYRINGE IV PRN (13:34)
[2024-06-26] MEDS: HYDROcodone/acetaminophen 5mg/325mg tablet PO ONE (14:20)
== END 2024-06-26 14:19 | disposition home or self-care (01) ==
LOC: PAS 09:19
PROVIDERS: ATTEND Surgery
DX: C50.211 Malignant neoplasm of upper-inner quadrant of right female breast (principal); J44.9 Chronic obstructive pulmonary disease, unspecified; I10 Essential (primary) hypertension; M10.9 Gout, unspecified; Z85.118 Personal history of other malignant neoplasm of bronchus and lung; Z79.01 Long term (current) use of anticoagulants; Z79.899 Other long term (current) drug therapy; M19.90 Unspecified osteoarthritis, unspecified site; Z87.891 Personal history of nicotine dependence; K21.9 Gastro-esophageal reflux disease without esophagitis; Z90.12 Acquired absence of left breast and nipple
CPT/HCPCS: 19301; 36415; 76098; 80053; 82948; 85025; 85610; 85730; 93005; A4215; A4618; A6253; A6258; A6449; A7000; J0690; J1171; J2405; J2704; J3010; J3490; J7030; J7120; Z7506; Z7508; Z7512; Z7610; Q9968